=== PATIENT | female | born 1990 | race American Indian/Alaskan Native ===

== ENCOUNTER 2018-01-07 11:16 | Emergency (ER) | payer OTHER ==
[2018-01-07 11:24] VITALS: TEMP 98.2; BMI 36.9
--- NOTE | 2018-01-07 11:58 | ED PDOC ---
HPI: CCC, URI, Sore Throat Time Seen by Provider: 01/07/18 11:41 Chief Complaint (Nursing): ENT Problem History Per: Patient Onset/Duration Of Symptoms: Days (2) Location Of Pain: Throat Associated Symptoms: Sore Throat. denies: Fever, Cough Severity: Mild Additional Complaint(s): Sore throat since yesterday. No fever or cough. No SOB Past Medical History Vital Signs: Last Vital Signs Temp 98.2 F 01/07/18 11:23 Pulse 86 01/07/18 11:23 Resp 16 01/07/18 11:23 BP 113/75 01/07/18 11:23 Pulse Ox 100 01/07/18 11:23 - Medical History PMH: Arthritis Denies: Asthma - Family History Family History: States: Unknown Family Hx - Immunization History Hx Tetanus Toxoid Vaccination: No Hx Influenza Vaccination: No Hx Pneumococcal Vaccination: No - Home Medications Home Medications: Ambulatory Orders Medication Instructions Recorded Azithromycin [Zithromax] 250 mg PO DAILY #6 tab 10/06/15 Azithromycin [Zithromax Z-Hossein] 250 mg PO DAILY #5 tab 10/08/15 Guaifenesin [Mucinex] 600 mg PO BID #14 ter 10/08/15 Azithromycin [Zithromax] 250 mg PO DAILY #6 tab 01/07/18 - Allergies Allergies/Adverse Reactions: Allergies Allergy/AdvReac Type Severity Reaction Status Date / Time No Known Allergies Allergy Verified 01/07/18 11:42 Review of Systems Constitutional: Negative for: Fever ENT: Positive for: Throat Pain Respiratory: Negative for: Cough, Shortness of Breath Physical Exam - Physical Exam Appears: Positive for: Non-toxic, No Acute Distress Skin: Positive for: Normal Color, Warm, DRY ENT: Positive for: Pharyngeal Erythema. Negative for: Tonsillar Exudate Neck: Positive for: Normal, Painless ROM Cardiovascular/Chest: Positive for: Regular Rate, Rhythm Respiratory: Positive for: CNT, Normal Breath Sounds - ECG O2 Sat by Pulse Oximetry: 100 Disposition - Clinical Impression Clinical Impression: Pharyngitis - Patient ED Disposition Is Patient to be Admitted: No Counseled Patient/Family Regarding: Studies Performed, Diagnosis, Need For Followup, Rx Given - Disposition Referrals: [facility] [Outside] Disposition: Routine/Home Disposition Time: 11:58 Condition: FAIR Prescriptions: Azithromycin [Zithromax] 250 mg PO DAILY #6 tab Instructions: Sore Throat, Adult (DC)
[2018-01-07 13:26] VITALS: BP 143/75; PULSE 77; RESP 18; O2SAT 97
== END 2018-01-07 13:36 | disposition home or self-care (01) ==
LOC: H.ER 11:16
DX: J02.9 Acute pharyngitis, unspecified (principal)